=== PATIENT | male | born 1975 | race Caucasian/White ===

== ENCOUNTER → 2025-05-09 09:21 | Outpatient (BNVA) | payer OTHER, SELFPAY | PROVIDERS: PCP Family Medicine; Visit Provider Family Medicine | DX: Z13.6 Encounter for screening for cardiovascular disorders (principal); Z12.5 Encounter for screening for malignant neoplasm of prostate | CPT/HCPCS: 80053; 80061; 84153; 84439; 84443; 85025 ==

== ENCOUNTER 2025-07-12 09:39 | Day surgery (SDC) | payer OTHER, SELFPAY ==
--- NOTE | 2025-07-12 10:10 | P.ANESASSM_ITS ---
Pre-Anesthetic Assessment Height/Weight: Height 1.73 m Weight 86.183 kg Operation Date: 07/12/25 11:00 Proposed Procedures p Colonoscopy 07962 G0121 Z12.11(Not Applicable) - Jordan Soriano MD Familial anesthetic complications: Never had anesthesia, no known family complications Was Beta Breanna taken within 24 hours: N/A Was Clonidine taken within 24 hours: N/A Last intake: Intake Last Liquid Date 07/11/25 Last Liquid Time 21:15 Last Solid Date 07/10/25 Last Solid Time 20:00 Social Alcohol (Social) and No tobacco Exam alert, oriented x 3, clear to auscultation bilaterally and regular rate & rhythm Airway Submandibular: within normal limits Cervical ROM: within normal limits Mallampati: Class II Dentition: full History/ROS No significant history except as noted and No significant complaints Pulmonary Sleep Apnea (Never been tested) CV/HEM None reported None reported Hepatic None reported GI Gastroesophageal Reflux Disease (None this morning) Metabolic None reported Musc/skel None reported Neuropsych None reported Anesthetic Plan ASA status: 1 Anesthesia: Anesthesia Evaluation, General and MAC Risk of > 500 ml blood loss (7ml/kg in children): No Medications/Allergies Home Medications ?Medication ?Instructions ?Recorded ?Confirmed ?Last Taken ?Type [id number]-blpxxxix-ptzxb acid 400 1 tab PO DAILY 07/07/25 07/11/25 History mcg-vit K 20 mcg-lycop 300 mcg tablet turmeric 400 mg capsule 400 mg PO DAILY 07/07/2507/11/25 History Allergies Allergy/AdvReac Type Severity Reaction Status Date / Time No Known Allergies Allergy Verified 06/02/25 08:00 [facility] Anesthesia Medical History No pertinent past medical history Surgical History No history of previous surgery Family History Father Parkinson disease Social History Smoking and tobacco/nicotine status: never used tobacco/nicotine Alcohol intake: current Alcohol intake frequency: few times a week Substance/Drug Use: never
--- NOTE | 2025-07-12 10:16 | W.PM.OPSFHP ---
Same Day Surgery H&P Indication for Procedure/HPI DATE OF PROCEDURE: July 12, 2025 CHIEF COMPLAINT/INDICATIONFOR SURGICAL PROCEDURE: screening colonoscopy PREOP DIAGNOSIS: screening colonoscopy PLANNED PROCEDURE: Operation Date: 07/12/25 11:00 Proposed Procedures p Colonoscopy [id number] G0121 Z12.11(Not Applicable) - Jordan Soriano MD Medications/Allergies* Home Medications ?Medication ?Instructions ?Recorded ?Confirmed ?Type rpsugkxv-rvvcvgno-hzzpr acid 400 1 tab PO DAILY 07/07/25 07/07/25 History mcg-vit K 20 mcg-lycop 300 mcg tablet turmeric 400 mg capsule 400 mg PO DAILY 07/07/25 07/07/25 History Allergies/Adverse Reactions Allergy/AdvReac Type Severity Reaction Status Date / Time No Known Allergies Allergy Verified 06/02/25 08:00 Current Medications: Generic Name Dose Route Start Last Admin Trade Name Freq PRN Reason Stop Dose Admin Sodium Chloride 1,000 mls @ 30 mls/hr 07/12/25 10:00 07/12/25 10:10 Sodium Chloride 0.9% IV 30 mls/hr .Q24H THOR Administration Pertinent History/Comorbid Conditions* Medical History (Updated 05/09/25 @ 09:14 by Kiel Cobos MD) No pertinent past medical history Surgical History (Updated 05/09/25 @ 09:04 by Kiel Cobos MD) No history of previous surgery Family History (Updated 05/09/25 @ 09:05 by Kiel Cobos MD) Parkinson disease Father Social History Smoking and tobacco/nicotine status: never used tobacco/nicotine Alcohol intake: current Alcohol intake frequency: few times a week Substance/Drug Use: never Pertinent Exam Findings alert, oriented x 3, clear to auscultation bilaterally, regular rate & rhythm and procedure specific exam findings abdomen soft, nt, nd Recommendations Risks and benefits of procedure reviewed and Patient/family agree to proceed Surgery/Procedure today Coding Level of Care Code Acute Code for Chg Fwd
--- NOTE | 2025-07-12 10:28 | PC.NURSE ---
cecum time 1028
[2025-07-12 10:38] VITALS: BP 103/64; PULSE 61; RESP 16; TEMP 36.1; O2SAT 98
[2025-07-12 10:47] VITALS: BP 99/68; PULSE 60; RESP 16; O2SAT 96
--- NOTE | 2025-07-12 11:25 | ANE.PACU2 ---
Inpatient post-anesthesia follow up: Airway intact: Yes Vital signs: Temperature 97.0 F Pulse Rate 60 Respiratory Rate 16 Blood Pressure 99/68 Pulse Oximetry 96 Oxygen Delivery Me thod Room Air Oxygen Flow Rate Fraction of Inspir ed Oxygen Hydration adequate: Yes Nausea and vomiting: No Pain level: 1 Mental status: Baseline
== END 2025-07-12 11:18 | disposition home or self-care (01) ==
PROVIDERS: PCP Family Medicine; Visit Provider Student in an Organized Health Care Education/Training Program
PROC: 0DJD8ZZ Inspection of Lower Intestinal Tract, Via Natural or Artificial Opening Endoscopic (ICD-10-PCS; CPT 45378; principal; 2025-07-12 11:00)
DX: Z12.11 Encounter for screening for malignant neoplasm of colon (principal); K57.30 Diverticulosis of large intestine without perforation or abscess without bleeding; K62.1 Rectal polyp; K21.9 Gastro-esophageal reflux disease without esophagitis; G47.30 Sleep apnea, unspecified
CPT/HCPCS: 45385; 88305; J2704; J7030